=== PATIENT | male | born 1980 | race Caucasian/White ===

== ENCOUNTER 2017-10-16 14:53 | Emergency (ER) | payer SELFPAY ==
[2017-10-16 14:54] VITALS: BP 136/85; PULSE 83; RESP 18; TEMP 36.8; O2SAT 97; BMI 25.7
--- NOTE | 2017-10-16 15:22 | CT_ITS ---
STUDY: CT ABDOMEN AND PELVIS WITH CONTRAST REASON FOR EXAM: Male, 37 years old. Left lower quadrant and flank pain RADIATION DOSAGE (If Supplied By Facility): CTDIvol = ( 14.03 ) mGy, DLP = ( 746.02 ) mGycm TECHNIQUE: Transaxial images were obtained from the dome of the diaphragm to the symphysis pubis without oral contrast. 100mL ml of Isovue 300 contrast was administered. Sagittal and coronal images were reconstructed. Individualized dose optimization techniques were used for this CT. COMPARISON: None. FINDINGS: The visualized lung bases are unremarkable. Previous sternotomy. Normal liver. Normal gallbladder and extrahepatic biliary system. Normal spleen. Normal pancreas. Normal bilateral adrenal glands. Normal right kidney. Normal left kidney. Normal visualized stomach. Nondistended fluid-filled small bowel loops in the lower abdomen and pelvis consistent with ileus. Retained stool noted throughout the colon. There is non-visualization of the appendix. Normal abdominal aorta. Normal inferior vena cava. Normal retroperitoneum. Normal urinary bladder. Normal abdominal wall. Normal osseous structures. CT/Abdomen/Pelvis W IV Cont ONLY IMPRESSION: No obstructive uropathy, normal-appearing bladder. Retained stool throughout the colon Focal small bowel ileus in the lower abdomen and pelvis No CT evidence of an acute inflammatory process Electronically Signed: Jose D Oden MD at 16:31 EST , Service support ,
[2017-10-16 15:35] LABS: Bacteria 0 SEEN /hpf (None Seen); Mucous, Urine 0 SEEN /hpf (<or=2+); Red Blood Cells-Urine 0 SEEN /hpf (0-5); White Blood Cells 0 SEEN /hpf (0-5)
[2017-10-16 15:37] LABS: Absolute Lymphocyte Count 2.82 X10^3/ul (0.83-4.51); Absolute Neutrophil Count 3.8 X10^3/uL (2.0-7.7); Basophil# 0.08 X10^3/uL; Eosinophil# 0.35 X10^3/uL; Eosinophils% 4.4 % (0-5); Hematocrit 43.9 % (40-54); Hemoglobin 15.5 g/dl (13.0-16.5); Lymphocyte # 2.82 X10^3/ul (4.0); Lymphocyte % 35.3 % (19-41); Mean Corp Hgb Conc 35.3 g/gl (32-36); Mean Corpuscular Hgb 30.6 pg (27.0-32.0); Mean Corpuscular Volume 86.8 fL (80-94); Mean Platelet Vol. 11.1 fl (6.2-12.0); Monocyte# 0.99 X10^3/uL; Monocyte% 12.4 % (0-10); Neutrophil # 3.75 X10^3/uL (2.7-7.7); Neutrophil % 46.8 % (47-70); Platelet Count 215 K/mm3 (150-450); RBC Distribution Width CV 13.1 % (11.6-14.6); RBC Distribution Width SD 40.6 fl (35.1-43.9); Red Blood Count 5.06 M/mm3 (4.6-6.2)
[2017-10-16 15:39] LABS: Color, Urine Straw (Yellow); Glucose, Dipstick Normal (Normal); Ketone-Dipstick Negative (Negative); Leukocyte Esterase-Dipstick Negative /ul (Negative); Nitrite-Dipstick Negative (Negative); Occult Blood-Urine Negative /ul (Negative); Protein-Dipstick Negative (Negative); Specific Gravity, Urine 1.005 (1.002-1.030); Urine Bilirubin Dipstick Negative (Negative); Urine Clarity Clear (Clear); Urine Urobilinogen Normal (Normal)
[2017-10-16 15:40] LABS: POSITIVE COUNT NO; POSITIVE DIFFERENTIAL NO; POSITIVE MORPHOLOGY NO
[2017-10-16 15:45] LABS: Squamous Epithelial Cells - UA 0-5 SEEN /hpf (0-5)
[2017-10-16 15:50] LABS: ALB/GLOB Ratio 1.3 RATIO (0.9-2.4); AST(SGOT) 46 U/L (15-37); Alanine Aminotransfer ALT/SGPT 78 U/L (16-61); Albumin, Serum 4.3 g/dL (3.2-5.0); Alkaline Phosphatase 64 U/L (45-117); Anion Gap 5 (5-15); BUN 8 mg/dL (7-18); BUN/Creat Ratio 8.9 RATIO (10-20); Calcium,Total 8.8 mg/dL (8.5-10.1); Chloride 101 mmol/L (98-107); EST Glomerular Filtration Rate 101 mL/min (>60); Est Glom Filt Rate - Afr Amer 122 mL/min (>60); Estimated Creatinine Clearance 114.91 ml/min; Globulin 3.2 g/dL (2.2-4.2); Glucose 92 mg/dL (74-106); Lipase 194 U/L (73-393); Potassium 3.4 mmol/L (3.5-5.1); Protein, Total 7.5 g/dL (6.4-8.2); Sodium Level 139 mmol/L (136-145)
[2017-10-16 16:53] VITALS: RESP 16
[2017-10-16] MEDS: Orphenadrine 60 MG/2 ML Ampul IM (17:24)
--- NOTE | 2017-10-16 17:29 | ED.DCSUM_ITS ---
- ER Visit Summary Date of Service: 10/16/17 Chief Complaint: Abdominal pain and back pain History of Present Illness: The patient is a 37 M with about 2 months of epigastric discomfort and left low back discomfort that is worse with movement that radiates into his left lower extremity below the knee. He occasionally does some heavy lifting but not often. He has been taking ibuprofen off and on for it. He states that when he belches, the epigastric discomfort improves, and his back and leg discomfort improved simultaneously. He states that the abdominal discomfort improves with food at times, but is never worsened with eating. No nausea or vomiting. Normal bowel movements without blood or melena. Saw his doctor for this early on and was given Cipro and Flagyl, he states it seemed to help his abdomen some but not his back, now he has been on Pepcid for the past 3 weeks, although he admits he is not taking it as prescribed, only 20 mg once daily. Denies any bowel or bladder dysfunction. Physical Examination: Well-appearing in no distress, vital signs unremarkable. Epigastric is mildly tender, no guarding or rebound, abdomen is soft and nondistended with normal bowel sounds present. No palpable masses. He is neurovascularly intact distally both lower extremities, with straight leg raises he has increased pain in his low back and his hamstring with the left ipsilaterally, but no radicular symptoms. Right straight leg raise is asymptomatic. He has normal reflexes. His back is mildly tender in the left paraspinal area, there is no rash. This is at the SI joint location. Test Results: Labs show very slight nonspecific AST and ALT elevations at 48 and 72 respectively. Lipase is normal. No elevated bilirubin. He has no leukocytosis or left shift. Urinalysis normal. CT abdomen and pelvis shows possible focal ileus of the small bowel but is otherwise normal, noting significant colonic stool. Emergency Department Course and Treatment: Clinically, patient does not have an ileus. He has been having to normal bowel movements daily including today. He was advised that he may need to have another one. He was given a GI cocktail, and he states that his epigastric discomfort is much better but his low back and leg discomfort is unchanged. This is all consistent with him being separate problems, the left back and leg problems likely be musculoskeletal, plus or minus radicular involvement, but no signs or symptoms of cauda equina syndrome. His epigastric symptoms sound more likely to be a duodenal ulcer. I recommend him taking the famotidine either 40 mg once a day or 20 mg twice daily , as prescribed, and following up with his doctor. I advised avoiding NSAIDs for now. He does a lot of holistic medicine, but had a lot of problems sleeping last night hence his ER visit today. He is okay with an injection of muscle relaxer, and a prescription for prn Flexeril and Ultram to use at home. Treatment Plan: As above Disposition: Discharge home Impression: Epigastric pain Left low back pain-musculoskeletal This note was generated with [employer] dictation software. It may contain incorrect words, spelling, and punctuation that were not noted in review of the chart prior to signing ED Disposition - Plan for ED Patient: Disposition: Home or Assisted Living Chief Complaint: Abd Pain Instructions: ED PUD Vs Gastritis, ED Sciatica Prescriptions: TraMADol [Ultram] 50 mg PO Q4H PRN PRN #15 tab PRN Reason: Pain Cyclobenzaprine [Flexeril] 10 mg PO TID PRN #21 tab PRN Reason: Muscle Spasm Referrals: Doctor,Your [STAFF PHYSICIAN] - 1 Week if not improving
[2017-10-16 17:39] VITALS: BP 131/77; PULSE 87; RESP 16; O2SAT 97
--- NOTE | 2017-10-16 17:40 | ED.RN ---
PT GIVEN WRITTEN AND VERBAL DISCHARGE INSTRUCTIONS AND THIS RN REVIEWED HOME GOING PRESCRIPTIONS WITH PT. PT VERBALIZES UNDERSTANDING. EDUCATED NOT TO DRIVE WHEN TAKING NARCOTIC MEDICATION. PT AMBULATORY HOME WITH FRIEND. IV D/C BY HORTENSIA HARP. PT DRESSES AND AMBULATES OUT OF ED WITH NO HELP FROM STAFF NECESSARY.
== END 2017-10-16 17:42 | disposition home or self-care (01) ==
PROVIDERS: Emergency Provider Emergency Medicine
DX: R10.13 Epigastric pain (principal); M54.5 Low back pain; K21.9 Gastro-esophageal reflux disease without esophagitis; Z79.899 Other long term (current) drug therapy
CPT/HCPCS: 74177; 80053; 81001; 83690; 85025; 96360; 96372; 99285; J7030; J7040; Q9967; A4216

== ENCOUNTER → 2017-10-26 15:32 | Outpatient (CLI) | payer SELFPAY ==
--- NOTE | 2017-10-26 16:07 | MRI_ITS ---
STUDY: MRI LUMBAR SPINE WITH AND WITHOUT CONTRAST REASON FOR EXAM: Male, 37 years old. Back pain and left leg pain TECHNIQUE: Standardized fat and water weighted pulse sequences were obtained in the sagittal and axial planes. 9 ml of Gadavist contrast material was administered for the contrast portion of the examination. COMPARISON: None FINDINGS: T12-L1: Normal endplates. Normal disc height, hydration and morphology. Normal bilateral facet joints. Normal central canal and bilateral lateral recesses. Normal bilateral intervertebral neural foramina. Normal lumbar lordosis. There is no substantial scoliosis. Normal conus medullaris that terminates at the L1 level. L1-2: L1 and L2 Schmorl's nodes. No compressive sequelae. L2-3: L2 and L3 Schmorl's nodes. Disc desiccation. No compressive sequelae. L3-4: Disc desiccation. Bulging annulus and bilateral facet hypertrophy. Minimal central canal stenosis with mild bilateral foraminal stenoses. L4-5: Disc desiccation. Bulging annulus with superimposed left paracentral disc protrusion and bilateral facet hypertrophy. Severe left lateral recess stenosis with mass effect on the transiting left L5 nerve root. Moderate left foraminal stenosis. L5-S1: Bulging annulus with superimposed left paracentral annular fissure. Mild left lateral recess stenosis. Bulging annulus with moderate left foraminal stenosis. Normal visualized sacral ala. Normal visualized paraspinous soft tissue structures. No abnormal postcontrast enhancement is seen. MRI/Spine Lumbar W/WO Contrast IMPRESSION: Disc protrusion at L4-5 with severe left lateral recess stenosis and mass effect on the transiting left L5 nerve root. Moderate left foraminal stenoses at the L4-5 and L5-S1 levels. Electronically Signed: Michael Brooks MD at 6:30 EST Tel , Service support ,
--- NOTE | 2017-10-26 16:07 | MRI_ITS ---
STUDY: MR PELVIS WITH T WITHOUT CONTRAST REASON FOR EXAM: Male, 37 years old. Back and left leg pain. TECHNIQUE: Standardized fat and water weighted pulse sequences were obtained in all 3 orthogonal planes, pre-and post contrast administration. 9 ml of Gadavist contrast material was administered intravenously for the contrast portion of the examination. COMPARISON: None. FINDINGS: Normal urinary bladder. Normal visualized small intestine. Normal visualized colon. There is no pelvic fluid. There is no pelvic mass lesion or lymphadenopathy. Normal visualized pelvic arteries. Normal osseous structures. Normal abdominal wall. MRI/Pelvis W/WO Contrast IMPRESSION: No significant abnormality noted in the unenhanced and enhanced MRI of the pelvis. Electronically Signed: Juan Cook MD at 17:14 EST , Service support ,
== END ==
DX: M54.42 Lumbago with sciatica, left side (principal); M99.03 Segmental and somatic dysfunction of lumbar region; M99.05 Segmental and somatic dysfunction of pelvic region
CPT/HCPCS: 72158; 72197; A9585

== ENCOUNTER → 2018-07-20 08:54 | Outpatient (CLI) | payer MEDICAID, SELFPAY | PROVIDERS: Family Provider Family Medicine; PCP Family Medicine; Referring Provider Internal Medicine Cardiovascular Disease; Visit Provider Internal Medicine Cardiovascular Disease | DX: R00.2 Palpitations (principal) | CPT/HCPCS: 93225; 93226 ==

== ENCOUNTER → 2018-08-08 14:18 | Outpatient (CLI) | payer MEDICAID, SELFPAY ==
[2018-08-08 17:53] LABS: Anion Gap 8 (5-15); BUN 8 mg/dL (7-18); BUN/Creat Ratio 7.9 RATIO (10-20); Chloride 102 mmol/L (98-107); Creatinine, Serum 1.01 mg/dL (0.70-1.30); EST Glomerular Filtration Rate 87 mL/min (>60); Est Glom Filt Rate - Afr Amer 106 mL/min (>60); Ferritin 69 ng/mL (26-388); Glucose 73 mg/dL (74-106); Sodium Level 141 mmol/L (136-145); T4 Free Direct 0.81 ng/dL (0.76-1.46); Thyroid Stim Hormone (TSH) 1.22 uIU/mL (0.358-3.74)
[2018-08-10 11:26] LABS: Hep C Antibodies <0.1 s/co ratio (0.0-0.9)
[2018-08-10 14:22] LABS: ANTINUCLEAR ANTIBODIES DIRECT Negative (Negative)
== END ==
PROVIDERS: Family Provider Family Medicine; PCP Family Medicine; Visit Provider Family Medicine
DX: H04.123 Dry eye syndrome of bilateral lacrimal glands (principal); R68.2 Dry mouth, unspecified; R94.6 Abnormal results of thyroid function studies; E78.5 Hyperlipidemia, unspecified; R79.89 Other specified abnormal findings of blood chemistry
CPT/HCPCS: 36415; 80048; 82728; 84439; 84443; 86038; 86225; 86235; 86803

== ENCOUNTER → 2019-11-20 14:23 | Outpatient (CLI) | payer MEDICAID, SELFPAY ==
[2019-08-25 15:57] VITALS: BMI 27.1
[2019-11-20 15:45] LABS: Absolute Lymphocyte Count 2.51 X10^3/uL (0.83-4.51); Absolute Neutrophil Count 5.1 X10^3/uL (2.0-7.7); Basophil# 0.02 X10^3/uL; Basophil% 0.2 % (0-1); Eosinophil# 0.18 X10^3/uL; Eosinophils% 2.1 % (0-5); Lymphocyte # 2.51 X10^3/ul (4.0); Lymphocyte % 28.6 % (19-41); Mean Corp Hgb Conc 33.3 g/dL (32-36); Mean Corpuscular Hgb 28.4 pg (27.0-32.0); Mean Corpuscular Volume 85.1 fL (80-94); Monocyte# 0.94 X10^3/uL; Monocyte% 10.7 % (0-10); NRBC Flagged by Analyzer 0 % (0-5); Neutrophil # 5.09 X10^3/uL (2.7-7.7); Neutrophil % 58.1 % (47-70); Platelet Count 247 K/mm3 (150-450); RBC Distribution Width CV 12.8 % (11.6-14.6); RBC Distribution Width SD 39.5 fl (35.1-43.9); Red Blood Count 5.29 M/mm3 (4.6-6.2); White Blood Count 8.8 K/mm3 (4.4-11.0)
[2019-11-20 16:25] LABS: Erythrocyte Sedimentation Rate 19 mm/hr (0-15)
[2019-11-23 11:28] LABS: CMV Acute Antibody IgM < 30.0 AU/mL (0.0-29.9); EBV Acute VCA IgM < 36.0 U/mL (0.0-35.9); EBV-VCA IgG 28.9 U/mL (0.0-17.9)
== END ==
PROVIDERS: PCP Family Medicine; Visit Provider Family Medicine
DX: R50.9 Fever, unspecified (principal); R61 Generalized hyperhidrosis; M79.10 Myalgia, unspecified site
CPT/HCPCS: 36415; 85025; 85652; 86140; 86644; 86645; 86664; 86665

== ENCOUNTER → 2020-12-13 09:41 | Outpatient (CLI) | payer MEDICAID, SELFPAY ==
[2019-08-25 15:57] VITALS: BMI 27.1
--- NOTE | 2020-12-13 09:49 | US_ITS ---
STUDY: ABDOMINAL ULTRASOUND - RIGHT UPPER QUADRANT REASON FOR VISIT: Male, 40 years old ABD PAIN TECHNIQUE: Ultrasound evaluation of the right upper quadrant was performed with real-time and static sauceda-scale imaging. TECHNICAL QUALITY: Adequate. COMPARISON: None. FINDINGS: Liver: The liver measures 14.3 cm. There is normal echogenicity of the liver. The bile ducts are within normal limits. There is hepatic color flow. The direction of portal flow is hepatopetal. There is no demonstrated mass lesion. Gallbladder: Normal distended gallbladder. The gallbladder wall measures 2 mm. There is a negative sonographic Prasad''s sign. There is no pericholecystic fluid. There are no gallstones. Common Bile Duct (C.B.D.): The common bile duct measures 4 mm. Pancreas: Normal size of the head, body and tail of the pancreas. There is normal echogenicity of the pancreas. There is no demonstrated pancreatic mass or cyst. Right Kidney: Normal size of the right kidney. The right kidney measures 10.3 x 4.9 x 4.7 cm. Normal renal cortex. The right cortex measures 1.4 cm. There is no demonstrated renal mass or cyst. There is no right hydronephrosis. US/Abdomen Limited IMPRESSION: Normal right upper quadrant ultrasound examination. Electronically Signed: Jose D Oden MD at 11:03 EDT , Service support ,
--- NOTE | 2020-12-13 10:30 | RAD_ITS ---
EXAMINATION: UPPER GI SERIES INDICATION: Male, 40 years abdominal pain. FLUOROSCOPY TIME (if supplied): (0:57) minutes/seconds. 19 images were obtained. TECHNIQUE: Radiographic and fluoroscopic images of the distal esophagus, stomach, and proximal small intestine were obtained following the oral ingestion of barium. COMPARISON: None. FINDINGS: There is no evidence for organomegaly, abnormal calcifications, or abnormal bowel gas pattern. The psoas margins and flank stripes are normal. The visualized osseous structures are normal. The mucosa of the esophagus, stomach and duodenum is normal in appearance without evidence for stricture, ulceration, mass or diverticulum. There is evidence of a small sliding hiatal hernia with gastroesophageal reflux. The patient ingested a 12 mm tablet of barium without any difficulty. RAD/Upper GI w/BA Swallow IMPRESSION: 1. Small sliding hiatal hernia with gastroesophageal reflux. Electronically Signed: Zion Kang MD at 12:20 EDT , Service support ,
== END ==
PROVIDERS: PCP Family Medicine; Referring Provider Family Medicine; Visit Provider Family Medicine
DX: R10.13 Epigastric pain (principal); R10.11 Right upper quadrant pain
CPT/HCPCS: 74246; 76705

== ENCOUNTER 2021-09-19 06:27 | Day surgery (SDC) | payer MEDICAID, SELFPAY ==
[2021-09-19] VITALS (14 sets, daily range): BP systolic 108–139; BP diastolic 75–110; PULSE 77–91; RESP 16; TEMP 35.7–36; O2SAT 16–110; BMI 27.8
--- NOTE | 2021-09-19 06:30 | PCM.HP.BLA ---
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 Ata Barber MD) Cardiac murmur Ventricular septal defect (VSD) Surgical History History of back surgery (~11/18/17) History of ventricular septal defect repair (~11/22/13) Family History (Updated 08/26/21 @ 15:07 by Wednesday) Father Hypertension Brother Diabetes Sister Breast cancer Lupus Cancer pancreatic Grandfather Colon cancer Social History (Updated 08/25/19 @ 16:[address] Levi Cuellar MD) Smoking Status: Never smoker alcohol intake: never substance use type: does not use HPI HPI HPI: KAYLEEN LOCKHART, is a 41 M who presents to the office today for surgical consultation regarding anal rectal pain and rectal bleeding. The patient is being referred by Dr. Carlos Nguyen and a written copy of my surgical consult recommendations will return to him. The patient has a known history of gastroesophageal reflux disease and hiatal hernia. He had a VSD closure November 2013. He has also had a microdiscectomy of L4 S1 October 10, 2019. He does take routine famotidine therapy. He has had long-term history of gastroesophageal reflux disease. Protamine helps he sometimes has breakthrough symptoms. He has had rectal bleeding for 67 years. It is usually painful not always. He does complain of some pain in the left lower quadrant. A maternal grandfather had colon cancer. A sister had colon polyps. Another sister had pancreatic cancer. Another sister had breast cancer. 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 He does do some heavy lifting and straining. He has previously had Covid-19 but he feels that that was early on in the incidence. Although he tested negative he did lose sense of smell and taste. He has not been vaccinated and is not interested at this time. ROS General General: Yes fatigue; No weight change, appetite, colon cancer, breast cancer or weakness HEENT HEENT: No difficulty swallowing, eye injury, eye surgery, swollen glands or hoarseness Endo Endocrine: No thyroid disease, diabetes mellitus, thyroid cancer, Hair loss, heat intolerance or cold intolerance Skin Skin: No rash or changing moles [facility] Musculoskeletal: Yes back problems; No arthritis, rheumatoid arthritis, gout or joint pain Cardio Cardiovascular: No murmur, pacemaker, heart disease, atrial fibrillation, high blood pressure, heart attack, heart stent, palpitations, shortness of breat with exertion or chest pain Psych Psychiatric: No depression, anxiety or hearing voices Resp Respiratory: No shortness of breath, No sleep apnea, No cough, No COPD, No asthma, No emphysema and No wheezing Gastro Gastrointestinal: No abdominal pain, No nausea or vomiting, No diarrhea, No constipation, Yes blood in stool, Yes acid reflux, No hemorrhoids, No ulcers, No gallbladder problem and No black,tarry stools [place] Hematologic: No blood thinners, No blood disorders, Yes bleeding, No anemia and No blood clots Neuro Neurologic: No system reviewed and no additional complaints, except as documented, No as per HPI, No abnormal gait, No abnormal hearing, No abnormal movements, No abnormal speech, No behavioral changes, No burning sensations, No confusion, No convulsions, No disequilibrium, No dizziness, No localized weakness, No frequent falls, No headache(s), No lack of coordination, No loss of vision, No memory loss, No numbness, No other visual disturbances, No radicular pain, No restless legs, No sensory deficit, No syncope, No tingling, No tremor(s), No weakness and No other Exam Const General: cooperative, comfortable and no acute distress Nutritional Appearance: average body habitus Orientation: alert and awake [facility] Head: normal to inspection Eyes General: appearance normal, both eyes and all related structures Resp Effort & Inspection: normal respiratory effort Auscultation: clear to auscultation bilaterally Cardio Rate: regular rate Rhythm: regular rhythm GI Palpation: soft and no hepatosplenomegaly Auscultation: normal bowel sounds Other: External anus appears unremarkable. Posteriorly the may be a very superficial fissure. [facility] Cervical Spine: normal cervical lordosis Skin General: no rashes or lesions noted Neuro General: patient alert and patient awake Extrem General: no calf tenderness Psych Appearance: grossly normal Assessment and Plan Assessment and Plan (1) GERD (gastroesophageal reflux disease): Status: Acute Qualifiers: Esophagitis presence: esophagitis presence not specified Qualified Code(s): K21.9 - Gastro-esophageal reflux disease without esophagitis (2) Rectal bleeding: Status: Acute (3) Left lower quadrant pain: Status: Acute (4) Family history of colonic polyps: Status: Acute Plan - Dr. Ata Barber MD: The patient's chronicity of rectal bleeding has been multiple years. He has never had a upper or lower endoscopy. On visual inspection I would have thought that a anal fissure would have been deep and chronic and at least on superficial inspecting him not detecting that at this time. In addition the patient complains of some intermittent left lower quadrant tenderness. He has a strong family history of colon polyps and malignancy. He has intractable gastroesophageal reflux disease and also has not had an upper endoscopy. He was treating the reflux with a H2 pj and not a proton pump inhibitor. With all this in mind I recommend to him a combined esophagogastroduodenoscopy and colonoscopy. Very careful inspection for reflux changes were possible Yousif's will be pursued and very careful inspection for potential source of left lower quadrant abdominal pain and rectal bleeding will be pursued. Pending that evaluation then will be better able to advise the patient regarding treatment options. He has had an opportunity to ask and have questions answered. We will schedule procedure at his discretion. I appreciate the opportunity of assisting with the surgical care. Copy: Dr. Carlos Barber M.D., F.A.C.S. I have re-examined the patient. There are no clinical changes since date of exam.
[2021-09-19] MEDS: Lactated Ringers 1,000 ML 15 ML IV (06:45)
--- NOTE | 2021-09-19 07:45 | EGD_PTH ---
PATIENT: KAYLEEN LOCKHART LOC: EN U#:[id number] AGE/SX: 41/M ROOM: RE09/19/[address]: Dr. Ata Barber MD : 1980 BED: DIS: 09/19/2021 SPEC #: [id number] RECD: 09/19/21 11:34 STATUS: ERIC CURRY #: [id number] MAUREEN: 09/19/21 07:[address]: Ata Barber DEPT: SURGICAL PATHOLOGY RECD BY: Opal Millard ENTERED: 09/19/21 12:38 SP TYPE: EGD BIOPSY OT DR: Dr. Carlos Nguyen, DO Tissues: A - Duodenum, NOS B - Gastric mucous membrane C - Esophagus, NOS D - Esophagus, NOS E - Sigmoid colon biopsy Procedures: Special Stain Group II Surgery Specimen Level IV Alcian Blue/PAS (control) HEADER OPERATION: Colonoscopy, EGD (MOD) PRE-OP DIAGNOSIS: GERD, rectal bleeding, left lower quadrant pain TISSUE SUBMITTED: A ? Duodenum biopsy, B ? Antrum biopsy for histo and H. pylori, C ? Distal esophagus biopsy, D ? Mid esophagus biopsy, E ? Proximal sigmoid biopsy MICROSCOPIC DIAGNOSIS A. Duodenum, biopsy: No pathologic change. B. Gastric antrum, biopsy: Mild chronic gastritis. See comment. C. Distal esophagus, biopsy: Changes of reflux. No evidence of goblet cell metaplasia. D. Mid esophagus, biopsy: Focal changes consistent with eosinophilic esophagitis. E. Proximal sigmoid colon, biopsy: Fragments of hyperplastic polyp. AM:ruel 09/22/2021 COMMENT B. The results of immunohistochemistry for Helicobacter pylori will be reported separately ([id number]). C. Alcian blue/PAS stain with matched control supports the above diagnosis. MICROSCOPIC DESCRIPTION Slides are reviewed. GROSS DESCRIPTION A - Received in fixative is one container labeled with the patient's name and designated duodenum biopsy. The specimen consists of one irregular fragment of light polk soft tissue that measures 0.8 x 0.5 x 0.1 cm. The specimen is totally submitted in one cassette. B - Received in fixative is one container labeled with the patient's name and designated antrum biopsy. The specimen consists of one irregular fragment of light polk soft tissue that measures 0.7 x 0.2 x 0.1 cm. The specimen is totally submitted in one cassette. C - Received in fixative is one container labeled with the patient's name and designated distal esophagus biopsy. The specimen consists of two irregular fragments of light pokl soft tissue that in aggregate measure 0.5 x 0.3 x 0.1 cm. The specimen is totally submitted in one cassette. D - Received in fixative is one container labeled with the patient's name and designated mid esophagus biopsy. The specimen consists of one irregular fragment of light polk soft tissue that measures 0.6 x 0.3 x 0.1 cm. The specimen is totally submitted in one cassette. E - Received in fixative is one container labeled with the patient's name and designated proximal sigmoid biopsy. The specimen consists of one irregular fragment of light polk soft tissue that measures 0.3 x 0.3 x 0.1 cm. The specimen is totally submitted in one cassette. / SJ:rg 09/19/2021 TC:3 CPT: 27449 x5, [id number]
--- NOTE | 2021-09-19 07:45 | IMM_PTH ---
PATIENT: KAYLEEN LOCKHART LOC: EN U#:[id number] AGE/SX: 41/M ROOM: RE09/19/[address]: Dr. Ata Barber MD : 1980 BED: DIS: 09/19/2021 SPEC #: [id number] RECD: 09/19/21 13:49 STATUS: ERIC REQ #: [id number] MAUREEN: 09/19/21 07:[address]: Ata Barber DEPT: IMMUNOHISTOCHEMISTRY RECD BY: Josselyn Gomez ENTERED: 09/19/21 13:49 SP TYPE: IMMUNO OTHR DR: Dr. Carlos Nguyen, DO Tissues: B - Stomach, NOS Procedures: H Pylori (initial) PHYSICIAN & INSTITUTION [place] [id number] SPECIMEN INFORMATION: Tissue Source: B ? Antrum biopsy Clinical Info: GERD, rectal bleeding, left lower quadrant pain Specimen Number: [id number] CPT code: 68950 METHODOLOGY: Deparaffinized sections of prefer/formalin-fixed tissue or PAP/DQ stained slides are incubated with monoclonal/polyclonal antibodies/oligonucleotide probes. Localization is made via biotin free immunoperoxidase method. Appropriate controls are performed and reacted as expected. Results on target cell population are indicated in the following table: RESULTS: ANTIBODY / CLONE RESULT Block B H Pylori (polyclonal) negative These tests were developed and their performance characteristics determined by [facility]. They may not have been cleared or approved by the U.[place]. Food and Drug Administration. The FDA has determined that such clearance or approval is not necessary. INTERPRETATION: B. Antrum biopsy: Negative for Helicobacter pylori organisms. AM:ruel 09/22/2021
[2021-09-19] MEDS: Midazolam 5 MG/ML Syringe (07:56)
--- NOTE | 2021-09-19 08:30 | OP.EGD_ITS ---
Patient Name: Mickey Bynum Procedure Date: 09/19/2021 7:53 AM Date of : 1980 Age: 41 Procedure: Upper GI endoscopy Indications: Suspected esophageal reflux Providers: Ata Barber MD Referring MD: Ata Barber MD Medicines: Midazolam 4 mg IV, Meperidine 100 mg IV Complications: No immediate complications. Procedure: Pre-Anesthesia Assessment: - Prior to the procedure, a History and Physical was performed, and patient medications and allergies were reviewed. The patient's tolerance of previous anesthesia was also reviewed. The risks and benefits of the procedure and the sedation options and risks were discussed with the patient. All questions were answered, and informed consent was obtained. Prior Anticoagulants: The patient has taken no previous anticoagulant or antiplatelet agents. ASA Grade Assessment: II - A patient with mild systemic disease. After reviewing the risks and benefits, the patient was deemed in satisfactory condition to undergo the procedure. After obtaining informed consent, the endoscope was passed under direct vision. Throughout the procedure, the patient's blood pressure, pulse, and oxygen saturations were monitored continuously. The Endoscope was introduced through the mouth, and advanced to the second part of duodenum. The upper GI endoscopy was accomplished without difficulty. The patient tolerated the procedure well. Moderate Sedation: Moderate (conscious) sedation was personally administered by the endoscopist. The following parameters were monitored: oxygen saturation, heart rate, blood pressure, and response to care. Total physician intraservice time was 15 minutes. Scope In: 7:59:45 AM Scope Out: 8:05:29 AM Total Procedure Duration Time 0 hours 5 minutes 44 seconds Findings: Esophagitis with no bleeding was found 40 cm from the incisors. Biopsies were taken with a cold forceps for histology. The middle third of the esophagus was normal. Biopsies were taken with a cold forceps for histology. A 1 cm hiatal hernia was present. Multiple localized, non-bleeding erosions were found in the gastric antrum. There were no stigmata of recent bleeding. Biopsies were taken with a cold forceps for histology. The examined duodenum was normal. Biopsies were taken with a cold forceps for histology. Impression: - Reflux esophagitis. Biopsied. - Normal middle third of esophagus. Biopsied. - 1 cm hiatal hernia. - Non-bleeding erosive gastropathy. Biopsied. - Normal examined duodenum. Biopsied. Recommendation: - Discharge patient to home. - Resume previous diet. - Continue present medications. - Use Prilosec (omeprazole) 40 mg PO daily. My office will call with pathology results Procedure Code(s): --- Professional --- 40264, Esophagogastroduodenoscopy, flexible, transoral; with biopsy, single or multiple 03571, 59, Moderate sedation services provided by the same physician or other qualified health technical healthcare consultant performing the diagnostic or therapeutic service that the sedation supports, requiring the presence of an independent trained observer to assist in the monitoring of the patient's level of consciousness and physiological status; initial 15 minutes of intraservice time, patient age 5 years or older Diagnosis Code(s): --- Professional --- K21.0, Gastro-esophageal reflux disease with esophagitis K44.9, Diaphragmatic hernia without obstruction or gangrene K31.89, Other diseases of stomach and duodenum CPT copyright 2017 [employer]. All rights reserved. The codes documented in this report are preliminary and upon account support manager review may be revised to meet current compliance requirements. Ata Barber MD 09/19/2021 8:29:40 AM This report has been signed electronically. Number of Addenda: 0 Note Initiated On: 09/19/2021 7:53 AM
--- NOTE | 2021-09-19 08:31 | OP.CCLET_ITS ---
09/19/2021 Carlos Nguyen [address] [facility] [place] [address] Re : Upper GI endoscopy procedure for Mickey Bynum Dear Dr. Nguyen This procedure was performed on Sunday, September 19, 2021. My impressions and recommendations are as follows: Impressions : - Reflux esophagitis. Biopsied. - Normal middle third of esophagus. Biopsied. - 1 cm hiatal hernia. - Non-bleeding erosive gastropathy. Biopsied. - Normal examined duodenum. Biopsied. Recommendations : - Discharge patient to home. - Resume previous diet. - Continue present medications. - Use Prilosec (omeprazole) 40 mg PO daily. My office will call with pathology results My findings are described in the full procedure note, which is enclosed. If I can be of further assistance, please feel free to contact me at Doctor phone number(s): Work: . Sincerely, Ata Barbre MD 09/19/2021 8:29:40 AM This report has been signed electronically.
--- NOTE | 2021-09-19 08:37 | OP.COLON_ITS ---
Patient Name: Mickey Bynum Procedure Date: 09/19/2021 8:07 AM Date of : 1980 Age: 41 Procedure: Colonoscopy Indications: Rectal bleeding Providers: Ata Barber MD Referring MD: Ata Barber MD Medicines: Midazolam 0.5 mg IV, Meperidine 50 mg IV Patient Profile: Last Colonoscopy: none. The patient's first colonoscopy is today. Complications: No immediate complications. Procedure: Pre-Anesthesia Assessment: - Prior to the procedure, a History and Physical was performed, and patient medications and allergies were reviewed. The patient's tolerance of previous anesthesia was also reviewed. The risks and benefits of the procedure and the sedation options and risks were discussed with the patient. All questions were answered, and informed consent was obtained. Prior Anticoagulants: The patient has taken no previous anticoagulant or antiplatelet agents. ASA Grade Assessment: II - A patient with mild systemic disease. After reviewing the risks and benefits, the patient was deemed in satisfactory condition to undergo the procedure. After I obtained informed consent, the scope was passed under direct vision. Throughout the procedure, the patient's blood pressure, pulse, and oxygen saturations were monitored continuously. The adult colonoscope was introduced through the anus and advanced to the cecum, identified by appendiceal orifice and ileocecal valve. The colonoscopy was performed without difficulty. The patient tolerated the procedure well. The quality of the bowel preparation was fair. Moderate Sedation: Moderate (conscious) sedation was personally administered by the endoscopist. The following parameters were monitored: oxygen saturation, heart rate, blood pressure, and response to care. Total physician intraservice time was 15 minutes. Scope In: 8:08:35 AM Scope Withdrawal Time 0 hours 11 minutes 39 seconds Scope Out: 8:24:18 AM Total Procedure Duration Time 0 hours 15 minutes 43 seconds Findings: The digital rectal exam findings include non-thrombosed internal hemorrhoids and internal hemorrhoids that prolapse with straining, but spontaneously regress to the resting position (Grade II). Pertinent negatives include normal prostate (size, shape, and consistency). A 6 mm polyp was found in the mid sigmoid colon. The polyp was sessile. The polyp was removed with a cold biopsy forceps. Resection and retrieval were complete. A few diverticula were found in the sigmoid colon. Impression: - Preparation of the colon was fair. - Non-thrombosed internal hemorrhoids and internal hemorrhoids that prolapse with straining, but spontaneously regress to the resting position (Grade II) found on digital rectal exam. - One 6 mm polyp in the mid sigmoid colon, removed with a cold biopsy forceps. Resected and retrieved. - Diverticulosis in the sigmoid colon. Recommendation: - Discharge patient to home. - Resume previous diet. - Continue present medications. - Repeat colonoscopy in 5 years for surveillance based on pathology results. - Telephone my office for pathology results in 1 week. Rectum appeared normal, no bleeding, no evidence for inflammation Procedure Code(s): --- Professional --- 19265, Colonoscopy, flexible; with biopsy, single or multiple 62413, 59, Moderate sedation services provided by the same physician or other qualified health patient care technician instructor performing the diagnostic or therapeutic service that the sedation supports, requiring the presence of an independent trained observer to assist in the monitoring of the patient's level of consciousness and physiological status; initial 15 minutes of intraservice time, patient age 5 years or older Diagnosis Code(s): --- Professional --- K64.1, Second degree hemorrhoids D12.5, Benign neoplasm of sigmoid colon K62.5, Hemorrhage of anus and rectum K57.30, Diverticulosis of large intestine without perforation or abscess without bleeding CPT copyright 2017 [employer]. All rights reserved. The codes documented in this report are preliminary and upon program professional review may be revised to meet current compliance requirements. Ata Barber MD 09/19/2021 8:37:01 AM This report has been signed electronically. Number of Addenda: 0 Note Initiated On: 09/19/2021 8:07 AM
--- NOTE | 2021-09-19 08:38 | OP.CCLET_ITS ---
09/19/2021 Carlos Nguyen [address] [place] [address] Re : Colonoscopy procedure for Mickey Bynum Dear Dr. Nguyen This procedure was performed on Sunday, September 19, 2021. My impressions and recommendations are as follows: Impressions : - Preparation of the colon was fair. - Non-thrombosed internal hemorrhoids and internal hemorrhoids that prolapse with straining, but spontaneously regress to the resting position (Grade II) found on digital rectal exam. - One 6 mm polyp in the mid sigmoid colon, removed with a cold biopsy forceps. Resected and retrieved. - Diverticulosis in the sigmoid colon. Recommendations : - Discharge patient to home. - Resume previous diet. - Continue present medications. - Repeat colonoscopy in 5 years for surveillance based on pathology results. - Telephone my office for pathology results in 1 week. Rectum appeared normal, no bleeding, no evidence for inflammation My findings are described in the full procedure note, which is enclosed. If I can be of further assistance, please feel free to contact me at Doctor phone number(s): Work: . Sincerely, Ata Barber MD 09/19/2021 8:37:01 AM This report has been signed electronically.
== END 2021-09-19 23:59 | disposition home or self-care (01) ==
LOC: EN 06:28 → AC 06:28
PROVIDERS: PCP Family Medicine; Referring Provider Surgery; Visit Provider Surgery
PROC: 0DJD8ZZ Inspection of Lower Intestinal Tract, Via Natural or Artificial Opening Endoscopic (ICD-10-PCS; CPT 45378; principal; 2021-09-19 07:40)
DX: K64.1 Second degree hemorrhoids (principal); D12.5 Benign neoplasm of sigmoid colon; K62.5 Hemorrhage of anus and rectum; K57.30 Diverticulosis of large intestine without perforation or abscess without bleeding; K29.50 Unspecified chronic gastritis without bleeding; K21.00 Gastro-esophageal reflux disease with esophagitis, without bleeding; K44.9 Diaphragmatic hernia without obstruction or gangrene; Z86.16 Personal history of COVID-19; Z20.822 Contact with and (suspected) exposure to COVID-19; Z80.0 Family history of malignant neoplasm of digestive organs; Z83.79 Family history of other diseases of the digestive system
CPT/HCPCS: 45380; 43239; 87426; 88305; 88313; 88342; 99152; 99153; C9803; J7120

== ENCOUNTER → 2023-03-18 | Outpatient (CLI) | payer MEDICAID, SELFPAY | END | disposition home or self-care (01) | PROVIDERS: PCP Family Medicine; Referring Provider Family Medicine; Visit Provider Family Medicine | DX: R50.9 Fever, unspecified (principal) | CPT/HCPCS: 36415 ==

== ENCOUNTER → 2023-12-30 | Outpatient (CLI) | payer MEDICAID, SELFPAY ==
[2023-12-30 10:33] LABS: Cholesterol 182 mg/dL (200); High Density Lipoprotein 42 mg/dL; Triglycerides 132 mg/dL; Very Low Density Lipoprotein 26 mg/dL (5-40)
== END | disposition home or self-care (01) ==
LOC: LAB 09:04
PROVIDERS: PCP Family Medicine; Referring Provider Family Medicine; Visit Provider Family Medicine
DX: Z00.00 Encounter for general adult medical examination without abnormal findings (principal)
CPT/HCPCS: 36415; 80061

== ENCOUNTER → 2024-09-04 | Outpatient (CLI) | payer MEDICAID, SELFPAY ==
--- NOTE | 2024-09-04 14:47 | RAD_ITS ---
STUDY: X-RAY CHEST REASON FOR EXAM: Male, 44 years old. CHEST PAIN TECHNIQUE: PA and lateral views of the chest. COMPARISON: 12/09/2014 FINDINGS: Status post median sternotomy. The lungs are clear and expanded. There is no demonstrated pleural abnormality. Normal size heart. Normal mediastinum and michael. Normal visualized pulmonary arteries. Normal visualized aortic arch and descending thoracic aorta. Normal visualized thoracic spine. Normal visualized ribs, clavicles, and shoulders. There is no demonstrated abnormality of the visualized soft tissue structures of the upper abdomen. RAD/Chest PA and Lateral IMPRESSION: No active disease. Electronically Signed: Mikhail Smith MD at 13:10 EST ,
[2024-09-04 17:51] LABS: Absolute Lymphocyte Count 3.45 X10^3/uL (0.83-4.51); Basophil# 0.07 X10^3/uL; Basophil% 0.7 % (0-1); Eosinophils% 4.1 % (0-5); Hematocrit 45.8 % (40-54); Hemoglobin 15.8 g/dL (13.0-16.5); Lymphocyte # 3.45 X10^3/ul (0.83-4.51); Mean Corp Hgb Conc 34.5 g/dL (32-36); Mean Corpuscular Hgb 29.6 pg (27.0-32.0); Mean Corpuscular Volume 85.9 fL (80-94); Mean Platelet Vol. 11.1 fl (6.2-12.0); Monocyte# 0.89 X10^3/uL; NRBC Flagged by Analyzer 0 % (0-5); Neutrophil # 5.03 X10^3/uL (2.7-7.7); Neutrophil % 50.9 % (47-70); Platelet Count 231 K/mm3 (150-450); RBC Distribution Width CV 12.2 % (11.6-14.6); Red Blood Count 5.33 M/mm3 (4.6-6.2); White Blood Count 9.9 K/mm3 (4.4-11.0)
[2024-09-04 18:10] LABS: Anion Gap 7 (5-15); BUN 10 mg/dL (7-18); BUN/Creat Ratio 7.8 RATIO (10-20); CRP < 2.90 mg/L (0.0-3.0); Calcium,Total 8.9 mg/dL (8.5-10.1); Chloride 100 mmol/L (98-107); Creatinine, Serum 1.29 mg/dL (0.70-1.30); EST Glomerular Filtration Rate 64 mL/min (>60); Est Glom Filt Rate - Afr Amer 77 mL/min (>60); Glucose 117 mg/dL (74-106); Potassium 3.7 mmol/L (3.5-5.1); Sodium Level 135 mmol/L (136-145); Troponin-I HS 5 pg/mL (3.0-78.0)
== END | disposition home or self-care (01) ==
PROVIDERS: PCP Family Medicine; Referring Provider Family Medicine; Visit Provider Family Medicine
DX: R07.9 Chest pain, unspecified (principal)
CPT/HCPCS: 36415; 71046; 80048; 84484; 85025; 86140

== ENCOUNTER → 2024-09-05 | Outpatient (CLI) | payer MEDICAID, SELFPAY ==
[2024-09-05 10:38] LABS: Cholesterol 228 mg/dL (200); High Density Lipoprotein 50 mg/dL; Triglycerides 107 mg/dL; Very Low Density Lipoprotein 21 mg/dL (5-40)
== END | disposition home or self-care (01) ==
LOC: MTLAB 08:34
PROVIDERS: PCP Family Medicine; Referring Provider Family Medicine; Visit Provider Family Medicine
DX: I10 Essential (primary) hypertension (principal)
CPT/HCPCS: 36415; 80061

== ENCOUNTER → 2025-01-01 | Outpatient (CLI) | payer MEDICAID, SELFPAY | END | disposition home or self-care (01) | LOC: BFHLAB 11:40 | PROVIDERS: PCP Family Medicine; Visit Provider Family Medicine | DX: I10 Essential (primary) hypertension (principal); R00.0 Tachycardia, unspecified | CPT/HCPCS: 36415; 84439; 84443 ==

== ENCOUNTER → 2025-03-16 | Outpatient (CLI) | payer MEDICAID, SELFPAY ==
--- NOTE | 2025-03-16 16:25 | MRI_ITS ---
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 Straightened lumbar lordotic curve denoting myospasm. The examined vertebrae bodies and posterior neural arches show no fracture or dislocation with preserve vertebral bodies height. Multilevel subchondral Schmorl's nodes of the examined vertebral end plates . Multilevel tiny marginal lipping and Modio II changes of the lumbar vertebral end plates. Variable degrees of reduced height and bright T2 WI signal of the intervertebral discs denoting their desiccation sparing L1-L2 disc. T12-L1: There is no focal disc pathology, central canal stenosis or neural foraminal stenosis. L1-L2: There is no focal disc pathology, central canal stenosis or neural foraminal stenosis. L2-L3: a 1 mm diffuse disc bulge indenting the theca and encroaching upon both neural exit foramina inducing mild exiting nerve roots compression. L3-L4: a 1 mm diffuse disc bulge indenting the theca and encroaching upon both neural exit foramina inducing mild exiting nerve roots compression. L4-L5: a diffuse disc bulge with a 15 x 8 mm central and left paracentral-left foraminal disc extrusion showing caudal inclination and merging with left perineural and paige-thecal granulation tissue indenting the theca and encroaching upon both neural exit foramina inducing marked left and moderate right exiting nerve roots compression. L5-S1: a mild diffuse disc bulge with left foraminal protrusion merging with left perineural and paige-thecal granulation tissue indenting the theca and encroaching upon both neural exit foramina inducing marked left and moderate right exiting nerve roots compression. The lower thoracic spinal cord, conus medullaris, and cauda equina nerve roots are unremarkable. No marrow infiltrative lesions. Paravertebral soft tissue is unremarkable. No developmental canal stenosis. MRI/Spine Lumbar (Routine) IMPRESSION: Post operative changes as detailed. Straightened lumbar lordotic curve denoting myospasm. No vertebral fracture or dislocation. L2-L3: a 1 mm diffuse disc bulge disc inducing mild exiting nerve roots grant negra. L3-L4: a 1 mm diffuse disc bulge inducing mild exiting nerve roots compression. L4-L5: a diffuse disc bulge with a 15 x 8 mm central and left paracentral-left foraminal disc extrusion showing caudal inclination and merging with left perineural and paige-thecal granulation tissue inducing marked left and moderate right exiting nerve roots compression. L5-S1: a mild diffuse disc bulge with left foraminal protrusion merging with le ft perineural and paige-thecal granulation tissue inducing marked left and moderate right exiting nerve roots compression. Reading [facility]
== END | disposition home or self-care (01) ==
LOC: MRI 15:54
PROVIDERS: PCP Family Medicine; Referring Provider Anesthesiology Pain Medicine; Visit Provider Anesthesiology Pain Medicine
DX: M54.16 Radiculopathy, lumbar region (principal)
CPT/HCPCS: 72148

== ENCOUNTER → 2025-05-30 | Outpatient (CLI) | payer MEDICAID, SELFPAY ==
[2025-05-30 12:24] LABS: Color, Urine Yellow (Yellow); Glucose, Dipstick Normal (Normal); Ketone-Dipstick Negative (Negative); Leukocyte Esterase-Dipstick Negative /ul (Negative); Nitrite-Dipstick Negative (Negative); Occult Blood-Urine Negative /ul (Negative); Protein-Dipstick 15 mg/dl (Negative); Specific Gravity, Urine 1.010 (1.002-1.030); Urine Bilirubin Dipstick Negative (Negative)
[2025-05-30 12:46] LABS: Cholesterol 242 mg/dL (<=200); Low Density Lipoprotein Calc. 160 mg/dL; Triglycerides 156 mg/dL; Very Low Density Lipoprotein 31 mg/dL (5-40); cholesterol:hdl ratio screen 4.75
== END | disposition home or self-care (01) ==
LOC: MTLAB 10:38
PROVIDERS: PCP Family Medicine; Referring Provider Family Medicine; Visit Provider Family Medicine
DX: E78.5 Hyperlipidemia, unspecified (principal); R30.0 Dysuria
CPT/HCPCS: 36415; 80061; 81002